=== PATIENT | male | born 1990 | race Caucasian/White ===

== ENCOUNTER 2023-12-22 10:51 | Emergency (ER) | payer OTHER, SELFPAY ==
[2023-12-22 10:58] VITALS: BP 136/74
--- NOTE | 2023-12-22 11:59 | ED.GENMED ---
History of Present Illness
<Cee Spencer PA-C - Last Filed: 12/22/23 19:10>
General
Chief Complaint: Numbness
Source: patient and records
Exam Limitations: none
Time Seen by Provider: 12/22/23 11:58
Nursing documentation reviewed up to this point in time: agreed with
Travel History
Have you had any contact with someone who has COVID-19?: No
Do you have any symptoms of coronavirus? Fever > 100 degrees, chills, cough, shortness of breath, sore throat, loss of taste or smell, muscle aches, or headache?: No
History of Present Illness
History of Present Illness:
33-year-old male with a past medical history of anxiety, bipolar disorder, schizophrenia presenting emergency department today with concerns of numbness and tingling on the right side of his scalp. Patient states that this started 3 days ago out of
nowhere. Patient denies any history of shingles. Patient denies any headache, rash, ear pain, eye pain, changes in his vision. Patient denies any numbness or tingling in his extremities. Patient denies any weakness, any trouble walking. Patient
is never had anything like this before. Patient denies any pain in his skin. Patient has no prior history of dermatologic conditions. Patient denies any new medications recently.
Past History
<Cee Spencer PA-C - Last Filed: 12/22/23 19:10>
Past History
ED Past Medical History: Psychiatric (Schizophrenia)
ED Past Surgical History: None
Social History
Tobacco: Smoker
Drug: Marijuana
Review of Systems
<Cee Spencer PA-C - Last Filed: 12/22/23 19:10>
Review of Systems
All Other Systems: ROS reviewed and negative except as documented in HPI and ROS
Phy Exam
<Cee Spencer PA-C - Last Filed: 12/22/23 19:10>
Physical Exam
Physical Exam:
General: Patient is well appearing and in no acute distress; non-toxic
Skin: Warm and dry, no rashes or lesions, no rash noted to the right side of face
Head: Normocephalic, atraumatic. No tenderness to palpation of the facial bones, TMJ joints intact bilaterally
Eyes: Sclera non-icteric. EOMs intact. PERRLA.
Ears: Tympanic membranes intact bilaterally with normal cone of light reflex, no vesicular lesions within the external auditory canals.
Cardiac: Regular rate and rhythm, no murmur
Peripheral Vascular: No lower extremity swelling or edema
Pulm: Normal respiratory effort, no wheezes, rales, or rhonchi.
Abdomen: No abdominal tenderness.
Neuro: CN II-XII intact, no focal neurologic deficits. Sensation intact to light and sharp touch bilaterally. No dysmetria. No pain with palpation of the trigeminal nerves bilaterally.
Psychiatric: Appropriate mood and affect.
Course
<Cee Spencer PA-C - Last Filed: 12/22/23 19:10>
Orders/Labs/Results
Orders:
Orders
12/22/23 12:38
Complete Blood Count/With Diff Urgent
Comprehensive Metabolic Panel Urgent
Abnormal Lab Results
12/22/23
12:38
RBC 4.46 L 10^6/uL
(4.70-6.10)
MCV 94.6 H fL
(80.0-94.0)
MCHC 32.2 L g/dL
(33.0-37.0)
Absolute Neuts (auto) 8.0 H 10^3/uL
(1.4-6.5)
Neutrophils % 78.9 H %
(42.2-75.2)
Lymphocytes % 14.9 L %
(20.5-51.1)
12/22/23 12:38
05/30/24 12:38
Vital Signs
Initial and Last Documented VS:
Initial Vital Signs
Temp Pulse Resp BP Pulse Ox
98.8 F 95 16 136/74 98
12/22/23 10:58 12/22/23 10:58 12/22/23 10:58 12/22/23 10:58 12/22/23 10:58
Last Documented Vital Signs
Temp Pulse Resp BP Pulse Ox
98.8 F 95 16 136/74 98
12/22/23 10:58 12/22/23 10:58 12/22/23 10:58 12/22/23 10:58 12/22/23 10:58
<Jeremy Hoskins, DO - Last Filed: 12/22/23 13:27>
Orders/Labs/Results
Orders:
Orders
12/22/23 12:38
Complete Blood Count/With Diff Urgent
Comprehensive Metabolic Panel Urgent
Abnormal Lab Results
12/22/23
12:38
RBC 4.46 L 10^6/uL
(4.70-6.10)
MCV 94.6 H fL
(80.0-94.0)
MCHC 32.2 L g/dL
(33.0-37.0)
Absolute Neuts (auto) 8.0 H 10^3/uL
(1.4-6.5)
Neutrophils % 78.9 H %
(42.2-75.2)
Lymphocytes % 14.9 L %
(20.5-51.1)
12/22/23 12:38
12/22/23 12:38
Vital Signs
Initial and Last Documented VS:
Initial Vital Signs
Temp Pulse Resp BP Pulse Ox
98.8 F 95 16 136/74 98
12/22/23 10:58 12/22/23 10:58 12/22/23 10:58 12/22/23 10:58 12/22/23 10:58
Last Documented Vital Signs
Temp Pulse Resp BP Pulse Ox
98.8 F 95 16 136/74 98
12/22/23 10:58 12/22/23 10:58 12/22/23 10:58 12/22/23 10:58 12/22/23 10:58
<Cee Spencer PA-C - Last Filed: 12/22/23 19:10>
MDM/Problems Addressed
Differential Diagnosis Includes:
Shingles dermatitis, contact dermatitis, complex migraine, trigeminal neuralgia, anxiety disorder, teeth grinding
MDM/Problems Addressed:
numbness and tingling
Chronic conditions affecting care: Psychiatric illness
Acute Exacerbation and/or Progression of Chronic Illness:
n/a
<Cee Spencer PA-C - Last Filed: 12/22/23 19:10>
*Pulse Oximetry
Patient hypoxic: no
*Critical Care Note
Total Time (30-74mins, 75-104mins- exclusive of procedures): Not Applicable
Data Reviewed
Review of Other/Old Records Reveals: Records (Reviewed discharge summary from 02/08/2023, reviewed ER physician documentation from 01/30/2023)
Source: patient and records
Further Testing Considered But Not Given:
Considered CT of the head however patient has no neurologic deficits
<Cee Spencer PA-C - Last Filed: 12/22/23 19:10>
Patient Management
Escalation/DeEscalation of care consider admission/obs:
33-year-old male with a past medical history of anxiety, bipolar disorder, schizophrenia presenting emergency department today with concerns of numbness and tingling on the right side of his scalp. Patient has no evidence of a zoster rash on his
face. No tenderness palpation of the trigeminal nerve. His CBC and CMP are unremarkable. No indication for imaging at this time. Because of symptoms unclear at this time. Patient will follow-up with his primary should his symptoms not resolve.
ED Attending Note
<Cee Spencer PA-C - Last Filed: 12/22/23 19:10>
-
Portions of this chart may have been created with voice recognition software.� Occasional wrong word or��sound alike� substitutions may have occurred due to the inherent limitations of voice recognition software.
<Jeremy Hoskins DO - Last Filed: 12/22/23 13:27>
ED Attending Note
Patient seen and examined by attending physician: Yes
I performed the substantive portion of visit, reviewed & personally made and approve the management plan that is documented in note by myself or NICOLASA.: Yes
I performed a history and physical exam of patient and discussed management with resident, I reviewed resident's note and agree with documented findings and plan of care.: Yes
ED Attending Note:
I evaluated this patient at bedside. The patient has some vague numbness to the right side of the scalp. He has no neurologic complaints other than the numbness localized to the scalp. I see no evidence of zoster. Basic blood work unremarkable.
No clear indication for CT imaging at this time as he has a nonfocal neurologic examination.
Discharge Plan
Departure
Patient Disposition: Home (Routine Discharge)
Date of Disposition: 12/22/23
Time of Disposition: 13:26
Patient with high blood pressure during this ER visit?: Yes
Condition: Good
Discharge Problem:
Numbness and tingling
Instructions: Paresthesia (DC), BLOOD PRESSURE
Prescriptions:
No Action
gabapentin 800 mg Tablet
800 mg PO HS
Rx Instructions:
at night
pantoprazole [Protonix] 40 mg tablet,delayed release (DR/EC)
40 mg PO DAILY Qty: 30 0RF
olanzapine 10 mg Tablet
20 mg PO HS Qty: 60 0RF
pantoprazole 40 mg Tablet,Delayed Release (Dr/Ec)
40 mg PO DAILY Qty: 30 0RF
prochlorperazine maleate [Compazine] 10 mg tablet
10 mg PO QID PRN (Reason: nausea and vomiting) Qty: 20 0RF
Referrals:
Brandon Bowles MD [Family Provider] -
Activity Restrictions/Additional Instructions:
Please follow up with your primary care provider should your symptoms not resolve.
Please return to the emergency department should you experience facial droop, rash on her face, eye pain, pain in your ear, fevers or chills, weakness one-sided body, difficulty walking, syncopal episodes, or any other concerning signs or symptoms.
Interventions
Interventions:
*Risk Screen - Suicide Last Done: 12/22/23 10:58
*General Assessment Last Done: 12/22/23 10:58
*Neglect/Abuse Screening Last Done: 12/22/23 10:58
*Nursing Disposition Last Done: 12/22/23 14:08
ED- Neurological Assessment Last Done: 12/22/23 12:07
Discharge Date and Time
Discharge Date/Time: 12/22/23 14:09
Print Language: MALAGASY
[2023-12-22 12:52] LABS: % Basophils 0.4 % (0-2); % Eosinophils 0.5 % (0-6); % Immature Granulocytes 0.3 % (0-0.5); % Lymphocytes 14.9 % (20.5-51.1); % Neutrophils 78.9 % (42.2-75.2); Absolute Eosinophils 0.1 10^3/uL (0-0.7); Absolute Lymphocytes 1.5 10^3/uL (1.2-3.4); Absolute Monocytes 0.5 10^3/uL (0.1-0.6); Hematocrit 42.2 % (39.0-52.0); Hemoglobin 13.6 g/dL (13.0-18.0); Mean Corp Hgb Conc. 32.2 g/dL (33.0-37.0); Mean Corpuscular Hgb 30.5 pg (27.0-31.0); Mean Corpuscular Volume 94.6 fL (80.0-94.0); Mean Platelet Volume 9.6 fL (7.4-10.4); Nucleated Red Blood Cells % 0 % (-); Platelet Count 289 10^3/uL (130-400); Red Blood Cell Count 4.46 10^6/uL (4.70-6.10); Red Cell Dist. Width 13.3 % (11.5-14.5); White Blood Cell Count 10.1 10^3/uL (4.8-10.8)
[2023-12-22 12:58] LABS: ALT (SGPT) 17 U/L (0-50); AST (SGOT) 18 U/L (17-59); Albumin 4.3 g/dl (3.5-5.0); Alkaline Phosphatase 43 U/L (38-126); Blood Urea Nitrogen 14 mg/dl (9-20); Calcium 9.7 mg/dl (8.4-10.2); Carbon Dioxide 26 mmol/L (22-30); Chloride 107 mmol/L (98-107); Glucose 95 mg/dl (70-99); Potassium 4.4 mmol/L (3.5-5.1); Sodium 140 mmol/L (135-145); Total Bilirubin 0.5 mg/dl (0.2-1.3); eGFR > 60.00
== END 2023-12-22 14:09 | disposition home or self-care (01) ==
LOC: EMR 10:51
PROVIDERS: Physician Assistant; EMERGENCY PHYSICIAN Emergency Medicine; FAMILY PHYSICIAN Family Medicine
DX: R20.0 Anesthesia of skin (principal); F31.9 Bipolar disorder, unspecified; F41.9 Anxiety disorder, unspecified; F20.9 Schizophrenia, unspecified; F17.200 Nicotine dependence, unspecified, uncomplicated
CPT/HCPCS: 99283; 80053; 85025

== ENCOUNTER 2024-04-10 10:20 | Emergency (ER) | payer OTHER, SELFPAY ==
[2024-04-10 10:25] VITALS: BP 141/76
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
[2024-04-10 12:23] LABS: % Basophils 0.5 % (0-2); % Eosinophils 0.2 % (0-6); % Immature Granulocytes 0.3 % (0-0.5); % Lymphocytes 10.3 % (20.5-51.1); % Monocytes 6.7 % (1.7-9.3); Absolute Basophils 0.1 10^3/uL (0-0.2); Absolute Immature Granulocytes 0.1 10^3/uL (0-0.05); Absolute Lymphocytes 1.6 10^3/uL (1.2-3.4); Absolute Neutrophils 12.5 10^3/uL (1.4-6.5); Hematocrit 39.8 % (39.0-52.0); Hemoglobin 13.1 g/dL (13.0-18.0); Mean Corp Hgb Conc. 32.9 g/dL (33.0-37.0); Mean Corpuscular Hgb 30.1 pg (27.0-31.0); Mean Corpuscular Volume 91.5 fL (80.0-94.0); Mean Platelet Volume 9.6 fL (7.4-10.4); Nucleated Red Blood Cells % 0 % (-); Platelet Count 288 10^3/uL (130-400); Red Blood Cell Count 4.35 10^6/uL (4.70-6.10); Red Cell Dist. Width 13.2 % (11.5-14.5); White Blood Cell Count 15.3 10^3/uL (4.8-10.8)
[2024-04-10 12:43] LABS: Blood Urea Nitrogen 16 mg/dl (9-20); Calcium 9.5 mg/dl (8.4-10.2); Carbon Dioxide 24 mmol/L (22-30); Chloride 107 mmol/L (98-107); Estimated Creatinine Clearance 117 ml/min; Glucose 98 mg/dl (70-99); Potassium 4.2 mmol/L (3.5-5.1); Sodium 142 mmol/L (135-145); eGFR > 60.00
[2024-04-10 12:47] LABS: Alcohol None Detected
[2024-04-10] MEDS: ATIVAN 1 MG IM (13:53)
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
[2024-04-10] MEDS: ZYPREXA 10 MG IM ×2 (16:27→19:46)
[2024-04-10 16:33] VITALS: BP 123/61
[2024-04-10 20:49] VITALS: BP 133/74
[2024-04-10] MEDS: ATIVAN 2 MG PO (22:24)
--- NOTE | 2024-04-10 23:30 | EDRN ---
Report received, patient is sleeping at this time 1:1 maintained, being told transport was pushed to 0100 at this time, will continue to monitor
--- NOTE | 2024-04-11 03:03 | DOWNTIME ---
There was a [employer] Client Teletypewriter Operator Downtime on 04/11/2024 from 0100 to 04/11/2024 at 0300. Downtime documentation of patient's care, including medication administrations, has been reconciled in the electronic record per guidelines. Refer to the
patient's paper chart under the miscellaneous tab to see printed paper medication records and downtime forms.
== END 2024-04-11 02:26 ==
LOC: EMR 10:20
PROVIDERS: EMERGENCY PHYSICIAN Student in an Organized Health Care Education/Training Program; OTHER PHYSICIAN Psychiatry & Neurology Psychiatry
DX: R45.1 Restlessness and agitation (principal); F20.9 Schizophrenia, unspecified; F31.9 Bipolar disorder, unspecified; Z65.3 Problems related to other legal circumstances; F12.90 Cannabis use, unspecified, uncomplicated; F17.200 Nicotine dependence, unspecified, uncomplicated; F43.10 Post-traumatic stress disorder, unspecified; Z88.8 Allergy status to other drugs, medicaments and biological substances
CPT/HCPCS: 99285; 96372 ×3; 80048; 82077; 85025; 90715; J2358